=== PATIENT | female | born 1985 | race Caucasian/White ===

== ENCOUNTER 2024-06-27 06:12 | Day surgery (SDC) | payer OTHER ==
[2024-06-24 16:08] VITALS: BMI 24.1
[2024-06-27] MEDS: IV FLUID CONTINUATION 1,000 ML IV ONE (06:56)
[2024-06-27] MEDS: ACETAMINOPHEN TAB 500 MG TAB PO PRN (07:00)
[2024-06-27] MEDS ORDERED: MIDAZOLAM 2 MG/2 ML VIAL IV PRN (07:00)
[2024-06-27] MEDS: ONDANSETRON 4 MG/2 ML VIAL IVP ONE (07:02)
[2024-06-27] MEDS: SCOPOLAMINE 1 MG/72 HR PATCH TRANSDERM ONE (07:02)
[2024-06-27] MEDS: HEPARIN SODIUM,PORCINE 5,000 UNIT/ML 1 ML VIAL SQ PRN (07:02)
[2024-06-27] MEDS: LACTATED RINGERS 1,000 ML IV SCH (07:02)
[2024-06-27] MEDS ORDERED: fentaNYL (PF) 50 MCG/ML 2 ML AMP ONE (07:31)
[2024-06-27] MEDS ORDERED: PHENYLEPHRINE-0.9% NACL SYG 1,000 MCG/10 ML SYRINGE ONE (07:31)
[2024-06-27] MEDS ORDERED: GLYCOPYRROLATE 0.2 MG/ML 2 ML VIAL ONE (07:31)
[2024-06-27] MEDS ORDERED: PROPOFOL 10 MG/ML 20 ML VIAL IV ONE (07:31)
[2024-06-27] MEDS ORDERED: SUCCINYLCHOLINE CHLORIDE 200 MG/10 ML VIAL IV ONE (07:31)
[2024-06-27] MEDS ORDERED: KETAMINE HCL IN 0.9 % NACL 50 MG/5 ML SYRINGE ONE (07:31)
[2024-06-27] MEDS ORDERED: ROCURONIUM 10 MG/ML (5 ML VIAL) IV ONE (07:31)
[2024-06-27] MEDS ORDERED: NEOSTIGMINE 1 MG/ML 10 ML VIAL ONE (07:31)
[2024-06-27] MEDS ORDERED: LIDOCAINE 1% INJ 10MG/ML (20 ML MDV) ONE (07:31)
[2024-06-27] MEDS ORDERED: MIDAZOLAM 2 MG/2 ML VIAL ONE (07:31)
[2024-06-27] MEDS: FAMOTIDINE 20 MG/2 ML VIAL IV STA (07:34)
[2024-06-27] MEDS: LIDOCAINE 1%-EPI 1:100,000 20 ML VIAL SQ ONE (08:00)
[2024-06-27] MEDS: LACTATED RINGERS 1,000 ML IV ONE ×3 (08:19→12:46)
--- NOTE | 2024-06-27 08:19 | P.OP ---
Date of Procedure: 06/27/24 Preoperative Diagnosis: Cholelithiasis Cholecystitis Postoperative Diagnosis: Same Procedure(s) Performed: Laparoscopic cholecystectomy Anesthesia: REN Surgeon: Jadiel Espinoza Estimated Blood Loss (ml): 5 Pathology: other (Gallbladder) Condition: stable Disposition: PACU Description of Procedure: B the patient was placed on the operating table. The patient received a general endotracheal tube anesthesia. The patients abdomen was prepped and draped in the usual sterile fashion. Through an infraumbilical stab incision, the fascia of the anterior abdominal wall was grasped with a pair of Kochers and then the Veress needle was placed in the peritoneal cavity. Position of the Veress needle was confirmed with positive drop test. The abdomen was then insufflated. After adequate insufflation, the 10 mm trocar was placed in the peritoneal cavity. Following this the laparoscope was placed in the peritoneal cavity. The patient was placed in the head-up, right side up position and then a 5 mm trocar was placed in the right lateral and right subcostal position under direct visualization. A 8 mm trocar was placed in the epigastric position. The gallbladder was grasped in the fundus and infundibulum. Traction on the gallbladder was placed in the lateral and the cephalad positions. The triangle of Calot was visualized.. The cystic duct was bluntly dissected until the union of the cystic duct and common bile duct was seen. A critical view of safety was achieved. The cystic duct was then divided and sealed with the Harmonic scissors. A PDS Endoloop was then placed throughout the cystic duct stump. The cystic artery divided and sealed with the Harmonic scissors. The gallbladder was then removed from the liver bed using Harmonic scissors. The gallbladder was then extracted through the epigastric port site. Operative field was checked for any bleeding spots and Harmonic scissors was used to coagulate the liver bed. The abdomen was irrigated. The trocars were removed. The skin was closed using interrupted 3-0 Vicryl suture. Dermabond dressing were applied. The patient tolerated the procedure well.
[2024-06-27 08:44] VITALS: TEMP 97.1
[2024-06-27] MEDS: HYDROmorphone 0.5 MG/0.5 ML SYRINGE IVP PRN (09:00)
[2024-06-27 09:19] VITALS: RESP 16
[2024-06-27] MEDS: KETOROLAC 15 MG/ML 1 ML VIAL IVP STA (09:42)
[2024-06-27] MEDS: diphenhydrAMINE 50 MG/ML 1 ML VIAL IVP STA (09:42)
[2024-06-27 10:26] VITALS: BP 116/81; PULSE 73
[2024-06-27] MEDS: droPERidol 2.5 MG/ML VIAL IVP ONE (11:47)
== END 2024-06-27 13:01 | disposition home or self-care (01) ==
LOC: OR 06:12
PROVIDERS: ATTEND Surgery
DX: K80.10 Calculus of gallbladder with chronic cholecystitis without obstruction (principal); Z88.8 Allergy status to other drugs, medicaments and biological substances; Z79.51 Long term (current) use of inhaled steroids; Z79.899 Other long term (current) drug therapy
CPT/HCPCS: 81025; 88304; 47562; J2250; J0330; J1200; J1644; J2710; J0690; J2405; J2003; J3010; J3490; J1885; J2704; J1171; J2371; J1596; J1790